=== PATIENT | male | born 1995 | race Caucasian/White ===

== ENCOUNTER 2023-12-25 16:56 | Emergency (ER) | payer MEDICAID, SELFPAY ==
[2023-12-25 16:57] VITALS: BP 130/71
[2023-12-25] MEDS: ADACEL 0.5 ML IM (17:46)
--- NOTE | 2023-12-25 17:51 | ED.SKININJ ---
HPI-Injury
General
Chief Complaint: Skin Surface Trauma
Source: patient
Exam Limitations: none
Time Seen by Provider: 12/25/23 17:02
Travel History
Have you had any contact with someone who has COVID-19?: No
Do you have any symptoms of coronavirus? Fever > 100 degrees, chills, cough, shortness of breath, sore throat, loss of taste or smell, muscle aches, or headache?: No
History of Present Illness-Injury
Initial Injury comments:
28-year-old [id number] male presents with laceration to right wrist he sustained today. His hand hit a sharp object on his chainsaw and lacerated his wrist. Last tetanus unknown. He denies numbness or tingling or loss of function. No
other complaints at this time
Past History
Past History
ED Past Medical History: None
ED Past Surgical History: None
Social History
Tobacco: Non-smoker
Phy Exam
Physical Exam
Physical Exam:
General: Well-appearing male no acute respiratory distress
Skin: 1 cm flap type laceration volar right wrist superficial nature without vessel or tendon involvement. No contamination
Musculoskeletal exam: Full range of motion all fingers and thumb right hand has full range of motion right wrist
Neurologic: Good sensation entire right hand
Vascular: 2+ radial and ulnar pulses to the right wrist with capillary refill to the fingers
Course
Orders/Labs/Results
Orders:
Orders
12/25/23 17:33
Tetanus/Diphth/Acelpertussis [Adacel] 0.5 ml IM .ONCE ONE
Vital Signs
Initial and Last Documented VS:
Initial Vital Signs
Temp Pulse Resp BP Pulse Ox
98.3 F 102 16 130/71 98
12/25/23 16:57 12/25/23 16:57 12/25/23 16:57 12/25/23 16:57 12/25/23 16:57
Last Documented Vital Signs
Temp Pulse Resp BP Pulse Ox
98.3 F 102 16 130/71 98
12/25/23 16:57 12/25/23 16:57 12/25/23 16:57 12/25/23 16:57 12/25/23 16:57
MDM/Problems Addressed
Differential Diagnosis Includes:
The wound was copiously irrigated and anesthetized with 1% lidocaine. No visible foreign bodies were visualized. The wound was then closed with 5-0 Prolene sutures in a simple erupted fashion. Total #3 sutures were required to close the wound.
Tetanus vaccine updated. Wound care instructions were given he was stable for discharge
*Critical Care Note
Total Time (30-74mins, 75-104mins- exclusive of procedures): Not Applicable
ED Attending Note
-
Portions of this chart may have been created with voice recognition software.� Occasional wrong word or��sound alike� substitutions may have occurred due to the inherent limitations of voice recognition software.
Discharge Plan
Departure
Patient Disposition: Home (Routine Discharge)
Date of Disposition: 12/25/23
Time of Disposition: 17:54
Patient with high blood pressure during this ER visit?: No
Discharge Problem:
Laceration
Instructions: Wound Care (DC), Laceration Repair With Stitches (DC)
Prescriptions:
No Action
buprenorphine-naloxone [Suboxone] 1 EACH film
1 ea sublingual HS
Referrals:
Avinash Balbuena DO [Family Provider] -
Activity Restrictions/Additional Instructions:
Keep clean. Have sutures removed in 10 to 14 days. Return if worse otherwise
Interventions
Interventions:
*ED COVID-19 Vaccine History Last Done: 12/25/23 16:57
ED-Skin Assessment Last Done: 12/25/23 17:26
Discharge Date and Time
Print Language: CANADIAN
== END 2023-12-25 18:04 | disposition home or self-care (01) ==
LOC: EMR 16:56
PROVIDERS: EMERGENCY PHYSICIAN Emergency Medicine; FAMILY PHYSICIAN Family Medicine
DX: S61.511A Laceration without foreign body of right wrist, initial encounter (principal); W31.2XXA Contact with powered woodworking and forming machines, initial encounter; Z23 Encounter for immunization
CPT/HCPCS: 99282; 12001; 90471; 90715